=== PATIENT | female | born 1980 | race African-American/Black ===

== ENCOUNTER 2019-03-26 16:47 | Inpatient (IN) | payer MEDICARE, MEDICAID ==
[~2019-03-26] VITALS: Ht 170.2 cm; Wt 99.8 kg
[2019-03-26] MEDS ORDERED: SODIUM CHLORIDE 0.9% 1,000 ML IV ONE (17:56)
[2019-03-26] MEDS ORDERED: LEVETIRACETAM 1000MG/100ML 100 ML IV ONE ×2 (18:00→21:45)
[2019-03-26] MEDS ORDERED: HYDRALAZINE 20MG/ML VIAL IV ONE ×2 (18:15→23:00)
[2019-03-26] MEDS ORDERED: LEVETIRACETAM 500MG TABLET PO ONE (19:45)
[2019-03-26] MEDS ORDERED: CLONIDINE 0.1MG TABLET PO ONE (19:45)
[2019-03-26] MEDS ORDERED: ONDANSETRON 4MG ODT PO ONE (20:15)
[2019-03-26 21:26] LABS: HCG SCREEN NEGATIVE
[2019-03-26] MEDS ORDERED: LORAZEPAM 2MG/ML CPJ IV ONE (21:30)
[2019-03-26] MEDS ORDERED: HYDROCODONE/ACETAMINOPHEN 5/325MG TABLET PO ONE (22:15)
[2019-03-26 22:17] LABS: EOSINOPHILS % 2.6 % (0.0-5.0); HEMATOCRIT. 36.5 % (36.0-48.0); HEMOGLOBIN. 11.7 g/dL (12.0-16.0); MEAN CORPUSCULAR HEMOGLOBIN 28.2 pg (28.0-32.0); MEAN CORPUSCULAR VOLUME 88.3 fL (81.0-99.0); MEAN PLATELET VOLUME 8.7 fl (7.4-10.4); MONOCYTES % 9.9 % (2.0-8.0); NEUTROPHILS % 50.5 % (40.0-76.0); PLATELET 228 x1000/uL (130-400); RED BLOOD CELL COUNT 4.14 mill/uL (4.2-5.4); RED CELL DISTRIBUTION WIDTH 17.7 % (11.6-14.6)
[2019-03-26 22:18] LABS: CHLORIDE 94 mEq/L (98-107)
[2019-03-26 22:24] LABS: ETHANOL BLOOD < 10 mg/dL
[2019-03-26] MEDS ORDERED: INSULIN REGULAR (HUMULIN R) 300UNITS/3ML IV ONE (23:15)
[2019-03-26] MEDS ORDERED: DOCUSATE SODIUM 100MG CAPSULE PO PRN (23:45)
[2019-03-26] MEDS ORDERED: LORAZEPAM 2MG/ML CPJ IV PRN (23:45)
[2019-03-26] MEDS ORDERED: ACETAMINOPHEN 325MG TABLET PO PRN (23:45)
[2019-03-26] MEDS ORDERED: IPRATROPIUM/ALBUTEROL 0.5-3(2.5)MG/3ML NEB NEB PRN (23:45)
[2019-03-26] MEDS ORDERED: HYDROCODONE/ACETAMINOPHEN 5/325MG TABLET PO PRN (23:45)
[2019-03-26] MEDS ORDERED: CLONIDINE 0.1MG TABLET PO PRN (23:45)
[2019-03-26] MEDS ORDERED: ONDANSETRON HCL 4MG/2ML INJ IV PRN (23:45)
[2019-03-27] MEDS ORDERED: NIFEDIPINE XL 60MG TAB PO SCH
[2019-03-27] MEDS ORDERED: HYDRALAZINE 20MG/ML VIAL IV PRN ×2 (06:00)
[2019-03-27 10:00] VITALS: BP 149/87
[2019-03-27 10:10] VITALS: BP 149/87
[2019-03-27] MEDS: NIFEDIPINE XL 60MG TAB PO SCH (11:16)
[2019-03-27] MEDS: LEVETIRACETAM 500MG TABLET PO SCH ×2 (11:16→21:28)
[2019-03-27] MEDS ORDERED: DIPHENHYDRAMINE 50MG/ML VIAL IV SCH (11:45)
[2019-03-27] MEDS ORDERED: HYDROCODONE/ACETAMINOPHEN 10/325MG TABLET PO PRN (12:15)
[2019-03-27 12:16] LABS: PHOSPHORUS 6.3 mg/dL (2.5-4.9)
[2019-03-27] MEDS: HYDROMORPHONE HCL/PF 2MG/ML CPJ IV PRN ×2 (14:07→20:21)
[2019-03-27 14:16] LABS: BASOPHILS % 0.7 % (0.0-2.0); EOSINOPHILS % 3.8 % (0.0-5.0); HEMATOCRIT. 34.2 % (36.0-48.0); HEMOGLOBIN. 11.2 g/dL (12.0-16.0); LYMPHOCYTES % 39.7 % (20.0-50.0); MEAN CORPUSCULAR HEMOGLOBIN 28.7 pg (28.0-32.0); MEAN CORPUSCULAR VOLUME 87.3 fL (81.0-99.0); MEAN PLATELET VOLUME 8.8 fl (7.4-10.4); MONOCYTES % 10.8 % (2.0-8.0); PLATELET 232 x1000/uL (130-400); RED BLOOD CELL COUNT 3.92 mill/uL (4.2-5.4); RED CELL DISTRIBUTION WIDTH 17.4 % (11.6-14.6)
[2019-03-27 14:21] LABS: HDL CHOLESTEROL 57 mg/dL (40-59); LDL CHOLESTEROL 87 mg/dL (5-100)
[2019-03-27 14:22] LABS: CREATINE KINASE 95 IU/L (26-192); CREATINE KINASE MB FRACTION 1.4 ng/mL (0.5-3.6)
[2019-03-27] MEDS: DIPHENHYDRAMINE 50MG/ML VIAL IV PRN (16:07)
[2019-03-27 19:05] VITALS: BP 107/59
[2019-03-27 20:00] VITALS: BP 131/90
[2019-03-27] MEDS ORDERED: DEXTROSE 50% WATER 50ML SYRINGE IV PRN (20:00)
[2019-03-27] MEDS: BLOOD SUGAR DIAGNOSTIC STRIP TEST SCH (21:28)
[2019-03-27] MEDS: INSULIN LISPRO 100 UNITS/ML SUBCUT SCH (21:29)
[2019-03-27] MEDS: INSULIN GLARGINE UD 100 UNITS/ML SYR SUBCUT SCH ×2 (21:31→21:45)
[2019-03-27] MEDS ORDERED: INSULIN GLARGINE UD 100 UNITS/ML SYR SUBCUT SCH (22:00)
[2019-03-28] VITALS: BP 133/86
[2019-03-28 04:00] VITALS: BP 145/91
[2019-03-28] MEDS: HYDROMORPHONE HCL/PF 2MG/ML CPJ IV PRN ×4 (04:03→22:35)
[2019-03-28] MEDS: DIPHENHYDRAMINE 50MG/ML VIAL IV PRN ×4 (04:03→22:35)
[2019-03-28] MEDS: BLOOD SUGAR DIAGNOSTIC STRIP TEST SCH ×4 (07:40→20:52)
[2019-03-28 08:00] VITALS: BP 157/92
[2019-03-28] MEDS: INSULIN LISPRO 100 UNITS/ML SUBCUT SCH ×4 (08:10→21:46)
[2019-03-28] MEDS ORDERED: SODIUM BICARBONATE 4% (2.4MEQ) 5ML VIAL IV ONE (09:49)
[2019-03-28] MEDS ORDERED: LIDOCAINE HCL 1% 20ML VIAL (Pyxis) INJ ONE (09:50)
[2019-03-28] MEDS: NIFEDIPINE XL 60MG TAB PO SCH (10:11)
[2019-03-28] MEDS: LEVETIRACETAM 500MG TABLET PO SCH ×2 (10:11→21:45)
[2019-03-28 12:00] VITALS: BP 161/97
[2019-03-28 14:33] LABS: BASOPHILS % 0.6 % (0.0-2.0); EOSINOPHILS % 3.9 % (0.0-5.0); HEMATOCRIT. 39.5 % (36.0-48.0); HEMOGLOBIN. 12.9 g/dL (12.0-16.0); LYMPHOCYTES % 45.8 % (20.0-50.0); MEAN CORPUSCULAR HEMOGLOBIN 28.5 pg (28.0-32.0); MEAN CORPUSCULAR VOLUME 87.6 fL (81.0-99.0); MEAN PLATELET VOLUME 8.7 fl (7.4-10.4); MONOCYTES % 10.5 % (2.0-8.0); NEUTROPHILS % 39.2 % (40.0-76.0); PLATELET 264 x1000/uL (130-400); RED BLOOD CELL COUNT 4.52 mill/uL (4.2-5.4); RED CELL DISTRIBUTION WIDTH 17.2 % (11.6-14.6)
[2019-03-28 16:00] VITALS: BP 107/62
[2019-03-28 20:00] VITALS: BP 142/86
[2019-03-28] MEDS: INSULIN GLARGINE UD 100 UNITS/ML SYR SUBCUT SCH (21:46)
[2019-03-29] VITALS: BP 136/84
[2019-03-29 04:00] VITALS: BP 150/73
[2019-03-29] MEDS: DIPHENHYDRAMINE 50MG/ML VIAL IV PRN ×3 (04:43→17:22)
[2019-03-29] MEDS: HYDROMORPHONE HCL/PF 2MG/ML CPJ IV PRN ×4 (05:10→23:10)
[2019-03-29] MEDS: BLOOD SUGAR DIAGNOSTIC STRIP TEST SCH ×4 (06:41→21:24)
[2019-03-29 08:00] VITALS: BP 165/60
[2019-03-29] MEDS: INSULIN LISPRO 100 UNITS/ML SUBCUT SCH ×4 (08:10→21:39)
[2019-03-29] MEDS: NIFEDIPINE XL 60MG TAB PO SCH (09:00)
[2019-03-29] MEDS: LEVETIRACETAM 500MG TABLET PO SCH ×3 (09:37→21:24)
[2019-03-29 12:00] VITALS: BP 151/83
[2019-03-29 14:23] LABS: BASOPHILS % 0.5 % (0.0-2.0); EOSINOPHILS % 4.7 % (0.0-5.0); HEMATOCRIT. 36.1 % (36.0-48.0); HEMOGLOBIN. 11.5 g/dL (12.0-16.0); MEAN CORPUSCULAR HEMOGLOBIN 27.9 pg (28.0-32.0); MEAN CORPUSCULAR VOLUME 87.5 fL (81.0-99.0); MEAN PLATELET VOLUME 8.4 fl (7.4-10.4); MONOCYTES % 12.4 % (2.0-8.0); NEUTROPHILS % 40.4 % (40.0-76.0); PLATELET 244 x1000/uL (130-400); RED BLOOD CELL COUNT 4.13 mill/uL (4.2-5.4); RED CELL DISTRIBUTION WIDTH 17.5 % (11.6-14.6)
[2019-03-29 16:00] VITALS: BP 148/82
[2019-03-29] MEDS ORDERED: LEVETIRACETAM 500MG TABLET PO PRN (17:00)
[2019-03-29] MEDS: DIPHENHYDRAMINE 50MG/ML VIAL IV NR ×2 (18:43→23:11)
[2019-03-29 20:00] VITALS: BP 106/54
[2019-03-29] MEDS: INSULIN GLARGINE UD 100 UNITS/ML SYR SUBCUT SCH (22:00)
[2019-03-30] VITALS: BP 120/50
[2019-03-30 04:00] VITALS: BP 132/55
[2019-03-30] MEDS: DIPHENHYDRAMINE 50MG/ML VIAL IV PRN ×4 (05:07→23:04)
[2019-03-30] MEDS: HYDROMORPHONE HCL/PF 2MG/ML CPJ IV PRN ×4 (05:08→23:04)
[2019-03-30] MEDS: INSULIN LISPRO 100 UNITS/ML SUBCUT SCH ×4 (07:30→21:00)
[2019-03-30] MEDS: BLOOD SUGAR DIAGNOSTIC STRIP TEST SCH ×4 (07:40→21:00)
[2019-03-30 08:00] VITALS: BP 157/80
[2019-03-30 08:16] LABS: BASOPHILS % 0.6 % (0.0-2.0); EOSINOPHILS % 4.7 % (0.0-5.0); HEMATOCRIT. 33.8 % (36.0-48.0); HEMOGLOBIN. 10.8 g/dL (12.0-16.0); LYMPHOCYTES % 31.8 % (20.0-50.0); MEAN CORPUSCULAR HEMOGLOBIN 27.8 pg (28.0-32.0); MEAN CORPUSCULAR VOLUME 87.3 fL (81.0-99.0); MEAN PLATELET VOLUME 8.5 fl (7.4-10.4); MONOCYTES % 13.2 % (2.0-8.0); NEUTROPHILS % 49.7 % (40.0-76.0); PLATELET 219 x1000/uL (130-400); RED BLOOD CELL COUNT 3.87 mill/uL (4.2-5.4); RED CELL DISTRIBUTION WIDTH 17.4 % (11.6-14.6)
[2019-03-30] MEDS: FOLIC ACID/VITAMIN B COMP W-C TABLET PO SCH (09:39)
[2019-03-30] MEDS: LEVETIRACETAM 500MG TABLET PO SCH ×2 (09:39→22:08)
[2019-03-30] MEDS: NIFEDIPINE XL 60MG TAB PO SCH (09:41)
[2019-03-30] MEDS ORDERED: NIFE-32 PO (11:31)
[2019-03-30] MEDS ORDERED: KEPP500 PO ×2 (11:31)
[2019-03-30] MEDS ORDERED: MED4 MT (11:31)
[2019-03-30 12:00] VITALS: BP 159/55
[2019-03-30 16:00] VITALS: BP 132/61
[2019-03-30 20:00] VITALS: BP 128/73
[2019-03-30] MEDS: INSULIN GLARGINE UD 100 UNITS/ML SYR SUBCUT SCH (22:00)
[2019-03-31] VITALS: BP 150/85
[2019-03-31 04:00] VITALS: BP 156/73
[2019-03-31] MEDS: DIPHENHYDRAMINE 50MG/ML VIAL IV PRN (05:12)
[2019-03-31] MEDS: HYDROMORPHONE HCL/PF 2MG/ML CPJ IV PRN (05:13)
[2019-03-31] MEDS: BLOOD SUGAR DIAGNOSTIC STRIP TEST SCH ×2 (07:40→13:22)
[2019-03-31] MEDS: INSULIN LISPRO 100 UNITS/ML SUBCUT SCH ×2 (07:56→13:32)
[2019-03-31 08:00] VITALS: BP 139/89
[2019-03-31] MEDS ORDERED: DIPHENHYDRAMINE 50MG/ML VIAL IV NR ×2 (08:06→09:30)
[2019-03-31 08:39] LABS: BASOPHILS % 0.4 % (0.0-2.0); EOSINOPHILS % 4.5 % (0.0-5.0); HEMATOCRIT. 32.2 % (36.0-48.0); HEMOGLOBIN. 10.3 g/dL (12.0-16.0); LYMPHOCYTES % 33.1 % (20.0-50.0); MEAN CORPUSCULAR HEMOGLOBIN 27.9 pg (28.0-32.0); MEAN CORPUSCULAR VOLUME 87.4 fL (81.0-99.0); MEAN PLATELET VOLUME 8.1 fl (7.4-10.4); MONOCYTES % 11.4 % (2.0-8.0); NEUTROPHILS % 50.6 % (40.0-76.0); PLATELET 223 x1000/uL (130-400); RED BLOOD CELL COUNT 3.68 mill/uL (4.2-5.4); RED CELL DISTRIBUTION WIDTH 17.4 % (11.6-14.6)
[2019-03-31] MEDS: NIFEDIPINE XL 60MG TAB PO SCH (09:00)
[2019-03-31] MEDS ORDERED: HYDROMORPHONE HCL/PF 2MG/ML CPJ IV NR (09:30)
[2019-03-31] MEDS: FOLIC ACID/VITAMIN B COMP W-C TABLET PO SCH (10:36)
[2019-03-31] MEDS: LEVETIRACETAM 500MG TABLET PO SCH ×2 (10:37→13:32)
[2019-03-31 12:00] VITALS: BP 144/63
[2019-03-31 13:01] VITALS: BP 144/63
[2019-03-31] MEDS ORDERED: HYDR-4009 MT ×2 (13:19→14:18)
== END 2019-03-31 14:40 | disposition home or self-care (01) | DRG 100 ==
LOC: ER 16:47 → 7WST 21:36 → EDBEDREQTM 21:38 → EDBEDREQ 21:38 → ENRESERV 03-27 07:42
PROVIDERS: ADMIT Internal Medicine; ATTEND Internal Medicine
PROC: 5A1D70Z Performance of Urinary Filtration, Intermittent, Less than 6 Hours Per Day (ICD-10-PCS; 2019-03-27)
PROC: 05HY33Z Insertion of Infusion Device into Upper Vein, Percutaneous Approach (ICD-10-PCS; principal; 2019-03-28)
PROC: 5A1D70Z Performance of Urinary Filtration, Intermittent, Less than 6 Hours Per Day (ICD-10-PCS; 2019-03-29)
PROC: 5A1D70Z Performance of Urinary Filtration, Intermittent, Less than 6 Hours Per Day (ICD-10-PCS; 2019-03-30)
DX: G40.919 Epilepsy, unspecified, intractable, without status epilepticus (principal); N18.6 End stage renal disease; E44.1 Mild protein-calorie malnutrition; E87.1 Hypo-osmolality and hyponatremia; I12.0 Hypertensive chronic kidney disease with stage 5 chronic kidney disease or end stage renal disease; N17.9 Acute kidney failure, unspecified; Z94.0 Kidney transplant status; D63.8 Anemia in other chronic diseases classified elsewhere; E10.22 Type 1 diabetes mellitus with diabetic chronic kidney disease; E10.65 Type 1 diabetes mellitus with hyperglycemia; E87.5 Hyperkalemia; E10.51 Type 1 diabetes mellitus with diabetic peripheral angiopathy without gangrene; G62.9 Polyneuropathy, unspecified; I16.0 Hypertensive urgency; Z91.19 Patient's noncompliance with other medical treatment and regimen; Z79.4 Long term (current) use of insulin; Z99.2 Dependence on renal dialysis; Z88.5 Allergy status to narcotic agent; Z89.442 Acquired absence of left ankle; Z89.441 Acquired absence of right ankle; Z68.34 Body mass index [BMI] 34.0-34.9, adult; Z79.899 Other long term (current) drug therapy
CPT/HCPCS: 36415; 36573; 76937; 80048; 80053; 80061; 80320; 82550; 82553; 82962; 83036; 83735; 84100; 84443; 84484; 84703; 85025; 93005; 93970; 96365; 96375; 99291; C1725; J0360; J1170; J1200; J1815; J1953; J2060; J3490; J7030; Q0162; G0480

== ENCOUNTER 2019-05-12 21:58 | Emergency (ER) | payer MEDICARE, MEDICAID ==
[~2019-05-12] VITALS: Ht 165.1 cm; Wt 86.0 kg
[~2019-05-12 21:58] MED LIST: HYDR-4009 MT; KEPP500 PO; MED4 MT; NIFE-32 PO
[2019-05-12] MEDS ORDERED: ACETAMINOPHEN 325MG TABLET PO ONE (22:45)
[2019-05-13] MEDS ORDERED: HYDROMORPHONE HCL 2MG TABLET PO ONE
[2019-05-13] MEDS ORDERED: MAGNESIUM 2 G PREMIX 50 ML IV ONE (00:30)
[2019-05-13 01:59] LABS: BASOPHILS % 0.6 % (0.0-2.0); HEMATOCRIT. 37.6 % (36.0-48.0); HEMOGLOBIN. 11.6 g/dL (12.0-16.0); LYMPHOCYTES % 25.7 % (20.0-50.0); MEAN CORPUSCULAR HEMOGLOBIN 29.1 pg (28.0-32.0); MEAN CORPUSCULAR VOLUME 93.9 fL (81.0-99.0); MEAN PLATELET VOLUME 8.4 fl (7.4-10.4); MONOCYTES % 7.1 % (2.0-8.0); NEUTROPHILS % 64.6 % (40.0-76.0); PLATELET 174 x1000/uL (130-400)
[2019-05-13] MEDS ORDERED: HYDROMORPHONE HCL/PF 2MG/ML CPJ IV ONE ×2 (02:30→05:30)
[2019-05-13] MEDS ORDERED: DIPHENHYDRAMINE 50MG/ML VIAL IV ONE ×2 (02:30→06:00)
[2019-05-13 02:32] LABS: CHLORIDE 94 mEq/L (98-107)
[2019-05-13] MEDS ORDERED: CALCIUM GLUCONATE 100MG/ML 10ML VIAL IV ONE (03:15)
[2019-05-13] MEDS ORDERED: ALBUTEROL (0.5%) 2.5MG/0.5ML NEB HHN ONE (03:15)
[2019-05-13] MEDS ORDERED: FUROSEMIDE 40MG/4ML VIAL IVP ONE (03:15)
[2019-05-13] MEDS ORDERED: INSULIN REGULAR (HUMULIN R) 300UNITS/3ML SUBCUT ONE (03:30)
[2019-05-13 04:08] LABS: BG CARBOXYHEMOGLOBIN 0.4 % (0.5-1.5); BG DEOXYHEMOGLOBIN 23.4 % (0.0-5.0); BG FRACTION INSPIRED OXYGEN 21; BG HCO3 ACT 17.9 mmol/L (22.0-26.0); BG METHEMOGLOBIN 0.3 % (0.0-1.5); BG OXYGEN SATURATION 76.4 % (92.0-98.5); BG OXYHEMOGLOBIN 75.9 % (94.0-97.0); BG PO2 45.3 mmHg (75.0-100.0); BG SAMPLE SITE OTHER; BG VENT MODE ROOM AIR
[2019-05-13 04:39] LABS: BETA HYDROXYBUTYRATE 0.1 mMol/L (0.0-0.3)
[2019-05-13] MEDS ORDERED: CALCIUM GLUCONATE 1,000 MG in DEXTROSE 5% WATER 50 ML IV SCH (05:30)
[2019-05-13 08:30] VITALS: BP 122/73
== END 2019-05-13 09:00 | disposition short-term general hospital (02) ==
LOC: ER 21:58 → CANBEDREQ 05-13 08:59 → ER 05-13 09:00
DX: S72.441A Displaced fracture of lower epiphysis (separation) of right femur, initial encounter for closed fracture (principal); I12.0 Hypertensive chronic kidney disease with stage 5 chronic kidney disease or end stage renal disease; N18.6 End stage renal disease; E11.10 Type 2 diabetes mellitus with ketoacidosis without coma; G40.909 Epilepsy, unspecified, not intractable, without status epilepticus; E87.5 Hyperkalemia; Z89.422 Acquired absence of other left toe(s); Z89.421 Acquired absence of other right toe(s); Z87.81 Personal history of (healed) traumatic fracture; Z88.5 Allergy status to narcotic agent; Z98.890 Other specified postprocedural states; Z99.2 Dependence on renal dialysis; W10.8XXA Fall (on) (from) other stairs and steps, initial encounter; Y93.89 Activity, other specified; Y92.018 Other place in single-family (private) house as the place of occurrence of the external cause
CPT/HCPCS: 36415; 36600; 72170; 73552; 73560; 73590; 80048; 80053; 82010; 82375; 82805; 82962; 83605; 85025; 93005; 99285; J0610; J1170; J1200; J1940; J3475; J7060; J1815

== ENCOUNTER 2021-03-25 02:33 | Emergency (ER) | payer MEDICARE, MEDICAID ==
[~2021-03-25] VITALS: Ht 165.1 cm; Wt 77.0 kg
[2021-03-25 02:42] VITALS: BP 126/90
== END 2021-03-25 04:26 | disposition left against medical advice (07) ==
LOC: ER 03:21
DX: Z53.21 Procedure and treatment not carried out due to patient leaving prior to being seen by health care provider (principal)